=== PATIENT | male | born 2000 | race Caucasian/White ===

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

== ENCOUNTER 2022-11-13 17:08 | Emergency (ER) | payer OTHER ==
[~2022-11-13] VITALS: Ht 177.8 cm; Wt 121.7 kg
[~2022-11-13 17:08] MED LIST changes: -KETO0.02 OD; +KETO5DRO33 OD; +OLOP2.5D3 OD; -PATA0.2S OD
[2022-11-13 17:10] VITALS: BP 144/96; TEMP 98.2; O2SAT 98
== END 2022-11-13 18:04 | disposition left against medical advice (07) ==
LOC: M ED 17:08
DX: Z53.21 Procedure and treatment not carried out due to patient leaving prior to being seen by health care provider (principal)

== ENCOUNTER 2023-08-10 13:22 | Emergency (ER) | payer OTHER ==
[2023-08-10 16:00] VITALS: BP 128/72; TEMP 98.9; O2SAT 99
== END 2023-08-10 16:07 | disposition home or self-care (01) ==
LOC: M ED 13:22
DX: F43.0 Acute stress reaction (principal)

== ENCOUNTER 2024-02-25 15:47 | Emergency (ER) | payer OTHER ==
[~2024-02-25] VITALS: Ht 182.9 cm; Wt 130.5 kg
[2024-02-25 17:34] LABS: BASO % 0.5 % (0.0-1.0); EOS # 0.1 10^3/uL (0.0-0.5); EOS % 2.3 % (0.0-3.0); HEMOGLOBIN 13.5 g/dl (13.5-17.5); LYMPH # 1.1 10^3/uL (1.5-5.0); LYMPH % 17.7 % (24.0-44.0); MEAN CORPUSCULAR HGB CONC 33.8 g/dl (32.0-36.5); MEAN CORPUSCULAR VOLUME 85.8 fl (80.0-96.0); MONO # 0.5 10^3/uL (0.0-0.8); MONO % 8.4 % (2.0-8.0); NEUTROPHILS # 4.3 10^3/uL (1.5-8.5); NEUTROPHILS % 70.8 % (36.0-66.0); PLATELET COUNT, AUTOMATED 265 10^3/uL (150-450); RED BLOOD COUNT 4.66 10^6/uL (4.30-6.10); WHITE BLOOD COUNT 6.1 10^3/uL (4.0-10.0)
[2024-02-25 17:59] LABS: BLOOD UREA NITROGEN 8 MG/DL (9-23); CALCIUM LEVEL 9.6 MG/DL (8.5-10.1); CARBON DIOXIDE LEVEL 28 MMOL/L (20-31); CHLORIDE LEVEL 107 MMOL/L (98-107); CREATININE FOR GFR 0.72 MG/DL (0.70-1.30); GLOMERULAR FILTRATION RATE > 60.0 (>60); GLUCOSE, FASTING 97 MG/DL (60-100); POTASSIUM SERUM 3.9 MMOL/L (3.5-5.1); SODIUM LEVEL 142 MMOL/L (136-145)
[2024-02-25 19:28] VITALS: TEMP 96.3
[2024-02-25 20:23] LABS: ALBUMIN 4.1 G/DL (3.2-5.2); ALKALINE PHOSPHATASE 89 U/L (40-129); ALT/SGPT 13 U/L (7.0-40); AST/SGOT 9 U/L (<34); BILIRUBIN,DIRECT 0.6 MG/DL (<0.4); BILIRUBIN,TOTAL 1.8 MG/DL (0.3-1.2); TOTAL PROTEIN 7.5 G/DL (5.7-8.2)
[2024-02-25 21:56] LABS: APPEARANCE, URINE CLEAR (CLEAR); BACTERIA, URINE AUTO NEGATIVE (NEGATIVE); BILIRUBIN, URINE AUTO NEGATIVE (NEGATIVE); BLOOD, URINE BLOOD NEGATIVE (NEGATIVE); COLOR, URINE STRAW (YELLOW); GLUCOSE, URINE (UA) AUTO NEGATIVE (NEGATIVE); KETONE, URINE AUTO NEGATIVE (NEGATIVE); LEUKOCYTE ESTERASE, URINE AUTO NEGATIVE (NEGATIVE); NITRITE, URINE AUTO NEGATIVE (NEGATIVE); PROTEIN, URINE AUTO NEGATIVE (NEGATIVE); RBC, URINE AUTO 0 /HPF (0-3); SPECIFIC GRAVITY URINE AUTO 1.005 (1.002-1.035); SQUAMOUS EPITHELIAL CELL UR AU 0 /HPF (0-6); UROBILINOGEN, URINE AUTO 0.2 mg/dL (0.0-2.0); WBC, URINE AUTO 0 /HPF (0-3)
[2024-02-25] MEDS: FUROSEMIDE 40MG/4ML VIAL IV ONE (22:20)
[2024-02-25] MEDS ORDERED: LASI20TA3 PO (23:16)
[2024-02-25 23:28] VITALS: BP 142/98; O2SAT 98
== END 2024-02-25 23:30 | disposition home or self-care (01) ==
LOC: M ED 15:47
DX: R60.0 Localized edema (principal); Z87.891 Personal history of nicotine dependence; Z79.899 Other long term (current) drug therapy
CPT/HCPCS: 71045; 80048; 80076; 81001; 83880; 85025; 93005; 93970; 96374; 99284; J1940

== ENCOUNTER 2024-04-07 21:31 | Emergency (ER) | payer OTHER ==
[~2024-04-07] VITALS: Ht 182.9 cm; Wt 130.7 kg
[~2024-04-07 21:31] MED LIST changes: +LASI20TA3 PO
[2024-04-07 21:39] VITALS: TEMP 98.4
[2024-04-07 22:39] LABS: HEMATOCRIT 39.3 % (42.0-52.0); HEMOGLOBIN 13.2 g/dl (13.5-17.5); MEAN CORPUSCULAR HEMOGLOBIN 28.9 pg (27.0-33.0); MEAN CORPUSCULAR HGB CONC 33.6 g/dl (32.0-36.5); PLATELET COUNT, AUTOMATED 276 10^3/uL (150-450); RED BLOOD COUNT 4.57 10^6/uL (4.30-6.10); WHITE BLOOD COUNT 6.9 10^3/uL (4.0-10.0)
[2024-04-07 23:13] LABS: CK-MB VALUE MASS < 1.0 NG/ML (<3.6)
[2024-04-07 23:15] LABS: BLOOD UREA NITROGEN 10 MG/DL (9-23); CALCIUM LEVEL 9.4 MG/DL (8.5-10.1); CARBON DIOXIDE LEVEL 28 MMOL/L (20-31); CHLORIDE LEVEL 105 MMOL/L (98-107); CREATININE FOR GFR 0.76 MG/DL (0.70-1.30); GLOMERULAR FILTRATION RATE > 60.0 (>60); GLUCOSE, FASTING 95 MG/DL (60-100); POTASSIUM SERUM 4.1 MMOL/L (3.5-5.1); SODIUM LEVEL 141 MMOL/L (136-145)
[2024-04-07 23:19] LABS: CPK CREATINE PHOSPHOKINASE 131 U/L (46-171); MB/CK RELATIVE INDEX 0.76 (< OR =4)
[2024-04-07 23:59] VITALS: BP 141/74; O2SAT 99
== END 2024-04-08 00:45 | disposition left against medical advice (07) ==
LOC: EDBD 21:31 → M ED 04-08 00:28
DX: Z53.21 Procedure and treatment not carried out due to patient leaving prior to being seen by health care provider (principal)

== ENCOUNTER 2024-04-23 16:44 | Observation (INO) | payer OTHER ==
[~2024-04-23] VITALS: Ht 182.9 cm; Wt 122.2 kg
[2024-04-23 18:55] LABS: BASO % 0.2 % (0.0-1.0); EOS # 0.1 10^3/uL (0.0-0.5); EOS % 0.5 % (0.0-3.0); HEMATOCRIT 36.9 % (42.0-52.0); HEMOGLOBIN 12.7 g/dl (13.5-17.5); LYMPH % 7.4 % (24.0-44.0); MEAN CORPUSCULAR HEMOGLOBIN 28.6 pg (27.0-33.0); MEAN CORPUSCULAR HGB CONC 34.4 g/dl (32.0-36.5); MEAN CORPUSCULAR VOLUME 83.1 fl (80.0-96.0); MONO # 1.2 10^3/uL (0.0-0.8); MONO % 8.8 % (2.0-8.0); NEUTROPHILS # 10.8 10^3/uL (1.5-8.5); NEUTROPHILS % 82.5 % (36.0-66.0); PLATELET COUNT, AUTOMATED 288 10^3/uL (150-450); RED BLOOD COUNT 4.44 10^6/uL (4.30-6.10); WHITE BLOOD COUNT 13.1 10^3/uL (4.0-10.0)
[2024-04-23 19:01] LABS: ERYTHROCYTE SEDIMENTATION RATE 78 mm/hr (0-15)
[2024-04-23 19:09] LABS: INR 1.22; PARTIAL THROMBOPLASTIN TIME 41.8 SECONDS (24.8-34.2); PROTHROMBIN TIME 15.7 SECONDS (12.5-14.5)
[2024-04-23 19:25] LABS: ALBUMIN 3.4 G/DL (3.2-5.2); ALKALINE PHOSPHATASE 85 U/L (40-129); ALT/SGPT 11 U/L (7.0-40); AST/SGOT 15 U/L (<34); BILIRUBIN,DIRECT 0.4 MG/DL (<0.4); BLOOD UREA NITROGEN 12 MG/DL (9-23); C REACTIVE PROTEIN QUANTITATIV 22.69 MG/DL (<1.0); CALCIUM LEVEL 9.2 MG/DL (8.5-10.1); CARBON DIOXIDE LEVEL 24 MMOL/L (20-31); CHLORIDE LEVEL 101 MMOL/L (98-107); CREATININE FOR GFR 0.66 MG/DL (0.70-1.30); GLOMERULAR FILTRATION RATE > 60.0 (>60); GLUCOSE, FASTING 103 MG/DL (60-100); POTASSIUM SERUM 3.9 MMOL/L (3.5-5.1); SODIUM LEVEL 136 MMOL/L (136-145); TOTAL PROTEIN 7.5 G/DL (5.7-8.2)
[2024-04-23 19:32] LABS: PROCALCITONIN 0.17 ng/ml
[2024-04-23 22:25] LABS: KETONE, URINE AUTO RFX TRACE mg/dL (NEGATIVE); LEUKOCYTE ESTERASE UR AUTO RFX NEGATIVE (NEGATIVE); MUCUS, URINE RFX SMALL (NEGATIVE); NITRITE, URINE AUTO RFX NEGATIVE (NEGATIVE); RBC, URINE AUTO RFX 0 /HPF (0-3); SQUAM EPITHELIAL CELL UR AURFX 0 /HPF (0-6)
[2024-04-23] MEDS: CEFEPIME HCL 2 GM in DEXTROSE 5% (D5W) ADV/MINI-BAG 50 ML IV ONE (22:37)
[2024-04-23] MEDS ORDERED: NS (Normal Saline) 0.9% 1,000 ML IV SCH (22:50)
[2024-04-23] MEDS ORDERED: HOME MED LIST COMPLETE! XX SCH (22:55)
[2024-04-23] MEDS ORDERED: MAALOX 30 ML SUSP *UDC PO PRN (23:45)
[2024-04-23] MEDS ORDERED: VANCOMYCIN HCL 1,000 MG, VIAL MATE ADAPTER 1 EACH in NS 250 ML IV SCH (23:45)
[2024-04-23] MEDS ORDERED: VANICREAM MOISTURIZING SKIN CREAM 113GM TUBE TOP PRN (23:45)
[2024-04-23] MEDS ORDERED: MOM 30ML SUSPENSION UDC PO PRN (23:45)
[2024-04-24] MEDS: VANCOMYCIN HCL 2,000 MG, VIAL MATE ADAPTER 1 EACH in NS 500 ML IV ONE (00:47)
[2024-04-24] MEDS: NS (Normal Saline) 0.9% 1,000 ML IV SCH (00:48)
[2024-04-24] MEDS: ACETAMINOPHEN 325 MG TAB PO PRN (02:14)
[2024-04-24 02:55] VITALS: BP 111/63; TEMP 98.8; O2SAT 95
[2024-04-24 04:00] VITALS: BP 112/66; TEMP 98.8; O2SAT 96
[2024-04-24 06:48] LABS: HEMATOCRIT 35.9 % (42.0-52.0); HEMOGLOBIN 11.9 g/dl (13.5-17.5); MEAN CORPUSCULAR HEMOGLOBIN 28.3 pg (27.0-33.0); MEAN CORPUSCULAR HGB CONC 33.1 g/dl (32.0-36.5); MEAN CORPUSCULAR VOLUME 85.3 fl (80.0-96.0); PLATELET COUNT, AUTOMATED 257 10^3/uL (150-450); RED BLOOD COUNT 4.21 10^6/uL (4.30-6.10); WHITE BLOOD COUNT 9.8 10^3/uL (4.0-10.0)
[2024-04-24 07:02] LABS: BLOOD UREA NITROGEN 10 MG/DL (9-23); CALCIUM LEVEL 8.7 MG/DL (8.5-10.1); CARBON DIOXIDE LEVEL 26 MMOL/L (20-31); CHLORIDE LEVEL 103 MMOL/L (98-107); CREATININE FOR GFR 0.69 MG/DL (0.70-1.30); GLOMERULAR FILTRATION RATE > 60.0 (>60); GLUCOSE, FASTING 118 MG/DL (60-100); POTASSIUM SERUM 3.8 MMOL/L (3.5-5.1); SODIUM LEVEL 139 MMOL/L (136-145)
[2024-04-24 07:03] LABS: C REACTIVE PROTEIN QUANTITATIV 18.89 MG/DL (<1.0)
[2024-04-24 08:31] LABS: VANCOMYCIN RANDOM 13.7 UG/ML
[2024-04-24 08:40] LABS: PROCALCITONIN 0.12 ng/ml
[2024-04-24] MEDS: DOCUSATE SODIUM 100MG CAPSULE PO SCH (08:52)
[2024-04-24] MEDS: CLOTRIMAZOLE 1% TOPICAL CREAM 30GM EXT SCH (08:52)
[2024-04-24] MEDS: ENOXAPARIN 40MG/0.4ML SYRINGE (J1650 PER 10MG) SC SCH (08:53)
[2024-04-24] MEDS: VANCOMYCIN 1,250 MG/250 ML IV BAG IV SCH (08:53)
[2024-04-24] MEDS ORDERED: ZYVO1TAB PO (10:31)
[2024-04-24 12:00] VITALS: BP 128/78; TEMP 98.1; O2SAT 98
== END 2024-04-24 15:48 | disposition home or self-care (01) ==
LOC: M ED 16:44 → M ED INP 16:45 → UNDOADMOB 23:41 → M ED INP 23:41 → INTOOBSV 23:41 → M MSPAV 04-24 02:52 → M ED INP 04-24 02:52 → M MSPAV 04-24 02:52
PROVIDERS: ADMIT Student in an Organized Health Care Education/Training Program; ATTEND Internal Medicine
DX: L03.116 Cellulitis of left lower limb (principal); R60.0 Localized edema; L03.126 Acute lymphangitis of left lower limb; A41.9 Sepsis, unspecified organism; D72.829 Elevated white blood cell count, unspecified; M79.662 Pain in left lower leg; A49.8 Other bacterial infections of unspecified site; R00.0 Tachycardia, unspecified; R68.83 Chills (without fever); R53.81 Other malaise; Z82.5 Family history of asthma and other chronic lower respiratory diseases; Z83.438 Family history of other disorder of lipoprotein metabolism and other lipidemia
CPT/HCPCS: 36415; 71045; 80048; 80076; 80202; 81001; 83605; 84145; 85025; 85027; 85610; 85652; 85730; 86140; 87040; 87070; 87077; 87186; 87205; 87641; 93041; 93971; 94760; 96365; 96366; 96367; 96372; 96376; 99285; J0692; J1650; J3371; J3372

== ENCOUNTER → 2024-07-20 | Outpatient (CLI) | payer OTHER ==
[~2024-07-20] MED LIST changes: +ZYVO1TAB PO
== END ==
LOC: M CARPUL 10:17
PROVIDERS: ATTEND Student in an Organized Health Care Education/Training Program
DX: R60.0 Localized edema (principal); I08.0 Rheumatic disorders of both mitral and aortic valves; I37.1 Nonrheumatic pulmonary valve insufficiency